=== PATIENT | female | born 1965 | race Caucasian/White ===

== ENCOUNTER 2023-04-08 23:45 | Observation (INO) | payer OTHER, SELFPAY ==
[2023-04-08 23:49] VITALS: BP 135/84; PULSE 100; RESP 16; TEMP 36.7; O2SAT 97; BMI 23.4
[2023-04-09] VITALS (8 sets, daily range): BP systolic 136–156; BP diastolic 84–88; PULSE 88–117; RESP 16–20; TEMP 36.6–37.1; O2SAT 97–98; BMI 25.4
--- NOTE | 2023-04-09 00:21 | ED.NAVMDI1 ---
HPI - Nausea/Vomiting/Diarrhea General Chief complaint: Nausea/Vomiting/Diarrhea Stated complaint: VOMITING Time Seen by Provider: 04/09/23 00:21 Source: patient Mode of arrival: walk-in Limitations: no limitations History of Present Illness HPI Narrative: patient ill past couple of days with recurrent vomiting and diarrhea. more vomiting. states she is not able to keep anything down. No abdominal pain or fever. Not around anyone who has been ill. No hematememis or blood per rectum. Feels weak Related Data Home Medications Medication Instructions Recorded Confirmed amitriptyline 50 mg tablet mg 04/08/23 atorvastatin 10 mg tablet mg 04/08/23 baclofen 10 mg tablet mg 04/08/23 carvedilol 6.25 mg tablet mg 04/08/23 gabapentin 800 mg tablet mg 04/08/23 lisinopril 10 tab 04/08/23 mg-hydrochlorothiazide 12.5 mg tablet metformin 1,000 mg tablet mg 04/08/23 pantoprazole 20 mg tablet,delayed mg PO 04/08/23 release Allergies Allergy/AdvReac Type Severity Reaction Status Date / Time acetaminophen [From Percocet] Allergy Verified 04/08/23 23:54 ondansetron [From Zofran] Allergy Verified 04/08/23 23:54 oxycodone [From Percocet] Allergy Verified 04/08/23 23:54 promethazine [From Phenergan] Allergy Verified 04/08/23 23:56 propoxyphene Allergy Verified 04/08/23 23:56 [From Darvocet-N] tylenol 3 Allergy Uncoded 04/08/23 23:54 Review of Systems ROS Status of ROS 10 or more systems reviewed and unremarkable except as noted in history and below [facility] Social History Smoking status: Never smoker Exam Constitutional Vital Signs, click to edit/add: Last Vital Signs Temp 98.0 F 04/08/23 23:49 Pulse 100 H 04/08/23 23:49 Resp 16 04/08/23 23:49 BP 135/84 04/08/23 23:49 Pulse Ox 97 04/08/23 23:49 Common normals: no apparent distress, average body habitus, oriented x3, no limitations, healthy appearing, alert and well nourished Eye Common normals: EOMs intact bilaterally Respiratory Common normals: normal respiratory effort, no retractions, no use of accessory muscles and clear to auscultation bilaterally Cardio Common normals: regular rate, regular rhythm, S1 normal heart sound and S2 normal heart sound GI Common normals: Normal to inspection, nondistended, normoactive bowel sounds present, soft to palpation and non-tender Extremity Common normals: normal to inspection and full ROM Neuro Common normals: oriented x3, CN's II-XII intact bilaterally, moves all extremities, no focal motor deficits and no sensory deficits noted Psych Appearance: grossly normal Course Vital Signs Vital signs: Vital Signs Temperature 98.0 F 04/08/23 23:49 Pulse Rate 100 H 04/08/23 23:49 Respiratory Rate 16 04/08/23 23:49 Blood Pressure 135/84 04/08/23 23:49 Pulse Oximetry 97 04/08/23 23:49 Temperature 98.0 F 04/08/23 23:49 Pulse Rate 100 H 04/08/23 23:49 Respiratory Rate 16 04/08/23 23:49 Blood Pressure 135/84 04/08/23 23:49 Pulse Oximetry 97 04/08/23 23:49 MDM - Nausea/Vomiting/Diarrhea MDM Narrative Medical decision making narrative: patient presents with recurrent vomiting and diarrhea for a couple of days. Not able to keep anything down. No abdominal pain. Abdominal exam neg. labs demonstrate hyponatremia. Discussed with the hospitalist and patient accepted for admission Lab Data Labs: Lab Results 04/09/23 Range/Units 00:01 WBC 7.6 (4.0-11.0) 10^3/uL RBC 3.92 L (4.20-5.40) 10^6/uL Hgb 10.6 L (12.0-16.0) g/dL Hct 31.6 L (36.0-48.0) % MCV 80.6 L (81.0-99.0) fL MCH 27.0 (26.7-34.0) pg MCHC 33.5 (29.9-35.2) g/dL RDW 13.7 (11.0-15.0) % Plt Count 335 (150-450) 10^3/uL MPV 9.1 L (9.5-13.5) fL Neut % (Auto) 71.0 (43.0-75.0) % Lymph % (Auto) 18.8 L (20.5-60.0) % [place] % (Auto) 8.1 (1.7-12.0) % Eos % (Auto) 1.5 (0.9-7.0) % Baso % (Auto) 0.5 (0.2-2.0) % Neut # (Auto) 5.4 (1.4-6.5) 10^3/uL Lymph # (Auto) 1.4 (1.2-3.8) 10^3/uL [place] # (Auto) 0.6 (0.3-0.8) 10^3/uL Eos # (Auto) 0.1 (0.0-0.7) 10^3/uL Baso # (Auto) 0.0 (0.0-0.1) 10^3/uL Abs Immat Gran (auto) 0.01 (0.00-0.03) 10^3/uL Imm/Tot Granulo (auto) 0.1 (0.0-0.5) % Sodium 123 L* (136-145) mmol/L Potassium 4.1 (3.5-5.1) mmol/L Chloride 88 L (98-107) mmol/L Carbon Dioxide 25.2 (21.0-32.0) mmol/L Anion Gap 13.9 BUN 11.0 (7.0-18.0) mg/dL Creatinine 1.04 H (0.55-1.02) mg/dL Est GFR ( Amer) >60 (>=60) Est GFR (Non-Af Amer) 55 L (>=60) BUN/Creatinine Ratio 10.6 Glucose 138 H (74-106) mg/dL Lactate 1.1 (0.4-2.0) mmol/L Calcium 8.9 (8.5-10.1) mg/dL Total Bilirubin 0.5 (0.2-1.0) mg/dL AST 14 L (15-37) U/L ALT 20 (14-59) U/L Alkaline Phosphatase 119 H (46-116) U/L Total Protein 7.6 (6.4-8.2) g/dL Albumin 3.6 (3.4-5.0) g/dL Globulin 4.0 g/dL Albumin/Globulin Ratio 0.9 Lipase 17.0 (16.0-77.0) U/L Discharge Plan Discharge Chief Complaint: Nausea/Vomiting/Diarrhea Clinical Impression: Gastroenteritis, Acute hyponatremia Patient Disposition: Admitted as Observation Prescriptions / Home Meds: No Action carvedilol 6.25 mg tablet atorvastatin 10 mg tablet amitriptyline 50 mg tablet pantoprazole 20 mg tablet,delayed release (DR/EC) PO gabapentin 800 mg tablet baclofen 10 mg tablet metformin 1,000 mg tablet lisinopril-hydrochlorothiazide 10-12.5 mg tablet Referrals: BREANA PERSON [Primary Care Provider] - 1 week
[2023-04-09] MEDS: 0.9 % SODIUM CHLORIDE 1,000 ML 999 ML IV ×2 (00:51)
[2023-04-09] MEDS: METOCLOPRAMIDE HCL 10 MG/2 ML VIAL IVP ×2 (00:52→05:48)
[2023-04-09 01:23] LABS: Basophils Percent Auto 0.5 % (0.2-2.0); Eosinophils Absolute Auto 0.1 10^3/uL (0.0-0.7); Eosinophils Percent Auto 1.5 % (0.9-7.0); Hematocrit 31.6 % (36.0-48.0); Hemoglobin 10.6 g/dL (12.0-16.0); Immature Granulocytes Abs Auto 0.01 10^3/uL (0.00-0.03); Immature Granulocytes Pct Auto 0.1 % (0.0-0.5); Lymphocytes Absolute Auto 1.4 10^3/uL (1.2-3.8); Lymphocytes Percent Auto 18.8 % (20.5-60.0); Mean Corpuscular HGB Conc 33.5 g/dL (29.9-35.2); Mean Corpuscular Volume 80.6 fL (81.0-99.0); Mean Platelet Volume 9.1 fL (9.5-13.5); Monocytes Absolute Auto 0.6 10^3/uL (0.3-0.8); Monocytes Percent Auto 8.1 % (1.7-12.0); Neutrophils Absolute Auto 5.4 10^3/uL (1.4-6.5); Platelet Count 335 10^3/uL (150-450); Red Blood Count 3.92 10^6/uL (4.20-5.40); Red Cell Distribution Width 13.7 % (11.0-15.0); White Blood Count 7.6 10^3/uL (4.0-11.0)
[2023-04-09 01:39] LABS: Lactate/Lactic Acid 1.1 mmol/L (0.4-2.0)
[2023-04-09 01:45] LABS: Alanine Aminotransferase 20 U/L (14-59); Albumin Globulin Ratio 0.9; Albumin Level 3.6 g/dL (3.4-5.0); Alkaline Phosphatase 119 U/L (46-116); Anion Gap 13.9; Aspartate Amino Transferase 14 U/L (15-37); BUN Creatinine Ratio 10.6; Bilirubin Total 0.5 mg/dL (0.2-1.0); Calcium 8.9 mg/dL (8.5-10.1); Carbon Dioxide 25.2 mmol/L (21.0-32.0); Chloride 88 mmol/L (98-107); Estimated GFR (African America >60 (>=60); Estimated GFR (Non-African Ame 55 (>=60); Glucose 138 mg/dL (74-106); Potassium 4.1 mmol/L (3.5-5.1); Total Protein 7.6 g/dL (6.4-8.2)
[2023-04-09 01:52] LABS: Sodium 123 mmol/L (136-145)
[2023-04-09 02:24] LABS: Bilirubin Urine NEGATIVE (NEGATIVE); Blood Urine NEGATIVE (NEGATIVE); Clarity Urine CLEAR (CLEAR); Color Urine LT. YELLOW (YELLOW); Glucose Urine UA NEGATIVE (NEGATIVE); Ketones Urine NEGATIVE (NEGATIVE); Leukocyte Esterase Urine TRACE (NEGATIVE); Nitrite Urine NEGATIVE (NEGATIVE); Protein Urine NEGATIVE (NEG/TRACE); Urobilinogen Urine 0.2 EU/dL (0.2-1.0); pH Urine 6.5 (5.0-9.0)
[2023-04-09 02:27] LABS: Urine Microscopic Indicated YES
[2023-04-09 02:33] LABS: Bacteria Urine NONE SEEN #/HPF (NONE SEEN); Cast Seen? NONE SEEN #/LPF (NONE SEEN); Crystals Seen? None Seen #/HPF (None Seen); Mucus Urine NONE SEEN (NONE SEEN); RBC Urine 0-2 #/HPF (0-2); Squamous Epithelial Cell Urine NONE SEEN #/LPF (NONE/RARE); WBC Urine 0-2 #/HPF (NONE SEEN)
[2023-04-09 02:43] LABS: Creatinine Urine Random 26.66 mg/dL (20.00-300.00); Sodium Urine Random 62 mmol/L (30-90)
[2023-04-09 05:16] LABS: Basophils Percent Auto 0.3 % (0.2-2.0); Eosinophils Absolute Auto 0.1 10^3/uL (0.0-0.7); Eosinophils Percent Auto 1.5 % (0.9-7.0); Hematocrit 30.5 % (36.0-48.0); Hemoglobin 10.1 g/dL (12.0-16.0); Immature Granulocytes Abs Auto 0.01 10^3/uL (0.00-0.03); Immature Granulocytes Pct Auto 0.2 % (0.0-0.5); Lymphocytes Absolute Auto 1.5 10^3/uL (1.2-3.8); Lymphocytes Percent Auto 25.1 % (20.5-60.0); Mean Corpuscular HGB Conc 33.1 g/dL (29.9-35.2); Mean Corpuscular Hemoglobin 27.1 pg (26.7-34.0); Mean Corpuscular Volume 81.8 fL (81.0-99.0); Mean Platelet Volume 8.9 fL (9.5-13.5); Monocytes Absolute Auto 0.7 10^3/uL (0.3-0.8); Monocytes Percent Auto 11.3 % (1.7-12.0); Neutrophils Absolute Auto 3.6 10^3/uL (1.4-6.5); Neutrophils Percent Auto 61.6 % (43.0-75.0); Platelet Count 273 10^3/uL (150-450); Red Blood Count 3.73 10^6/uL (4.20-5.40); Red Cell Distribution Width 13.6 % (11.0-15.0); White Blood Count 5.9 10^3/uL (4.0-11.0)
[2023-04-09 05:39] LABS: Anion Gap 14.7; BUN Creatinine Ratio 9.6; Calcium 8.6 mg/dL (8.5-10.1); Carbon Dioxide 24.5 mmol/L (21.0-32.0); Chloride 96 mmol/L (98-107); Estimated GFR (African America >60 (>=60); Estimated GFR (Non-African Ame >60 (>=60); Glucose 114 mg/dL (74-106); Potassium 4.2 mmol/L (3.5-5.1); Sodium 131 mmol/L (136-145)
[2023-04-09] MEDS: 0.9 % SODIUM CHLORIDE 1,000 ML 125 ML IV (07:45)
[2023-04-09] MEDS: CARVEDILOL 6.25 MG TABLET PO (10:22)
[2023-04-09] MEDS: MULTIVITAMIN TABLET 1 TAB PO (10:22)
[2023-04-09] MEDS: ASPIRIN 81 MG TABLET.DR PO (10:22)
[2023-04-09] MEDS: OMEPRAZOLE 20 MG CAPSULE.DR PO (10:22)
[2023-04-09] MEDS: ATORVASTATIN CALCIUM 10 MG TABLET PO (10:22)
[2023-04-09] MEDS: BACLOFEN 10 MG TABLET PO (10:22)
--- NOTE | 2023-04-09 10:54 | CM.NOTE ---
Rounds made with Dr. Valdez, will increase pt's diet. If tolerates may discharge to home.
[2023-04-09 11:10] LABS: Glucometer 164 mg/dL (74-106)
--- NOTE | 2023-04-09 11:11 | P.HP_ITS ---
<Statement entered by Shaikh Courtney MD - 04/09/23 14:44> This documentation has been reviewed and approved. Seen and examined. Doing well now. Tolerated PO diet, no nausea/vomiting or diarrhea since last night. Exam: Laying in bed, comfortable CTA b/l, normal RR Normal HR, no murmurs NT, ND, BS+VE Assessment and Plan Viral gastroenteritis Hyponatremia. GERD Symptoms improved/resolved. Stable for discharge. H&P: HPI History of Present Illness Chief complaint: VOMITING Narrative: 04/09/23 0199 This is a 58-year-old female patient with a past medical history as outlined below including DM type II, HTN, hyperlipidemia, and GERD; who presented to the ED complaining of a 2-day history of nausea, vomiting, and diarrhea. She denies any abdominal pain or fever or recent sick contacts. She denies hematemesis or hematochezia. She endorses significant weakness. Workup in the ED revealed hyponatremia (123), with remaining lab work unremarkable. She was admitted early this morning in observation to the hospitalist service for IV fluid administration and antiemetic administration. At the time of my exam this morning the pt is sitting up in bed eating jello. She reports feeling significantly improved after receiving IVFs - even while still in the ED. Her sodium is improved to 131 on repeat labs. She denies any further N/V/D since admission. We will advance her diet and if she tolerates this well, she will be discharged home later today. DISCHARGE: The pt tolerated her full breakfast well without any recurrence of N/V. She is being discharged home in stable condition. She should follow up with her PCP within one week. Review of Systems ROS Status of ROS 10 or more systems reviewed and unremark able except as noted in history and below [facility] Medical History (Updated 04/09/23 @ 14:36 by Ele Arias NP) GERD (gastroesophageal reflux disease) ?K21.9 - Gastro-esophageal reflux disease without esophagitis (ICD-10) Breast cancer ?C50.919 - Malignant neoplasm of unspecified site of unspecified female breast (ICD-10) High cholesterol ?E78.00 - Pure hypercholesterolemia, unspecified (ICD-10) Diabetes ?E11.9 - Type 2 diabetes mellitus without complications (ICD-10) Surgical History (Updated 04/09/23 @ 03:48 by Cassidy Robles) Hx of cholecystectomy ?Z90.49 - Acquired absence of other specified parts of digestive tract (ICD- 10) H/O: ?Z98.891 - History of uterine scar from previous surgery (ICD-10) H/O right mastectomy ?Z90.11 - Acquired absence of right breast and nipple (ICD-10) Social History Smoking status: Never smoker Highest level of school completed/degree received: high school graduate Meds Home Medications and Allergies Home Medications Medication Instructions Recorded Confirmed Type amitriptyline 50 mg tablet 50 mg PO DAILY 04/08/23 04/09/23 History atorvastatin 10 mg tablet 10 mg PO DAILY 04/08/23 04/09/23 History baclofen 10 mg tablet 10 mg PO BID 04/08/23 04/09/23 History carvedilol 6.25 mg tablet 6.25 mg PO BID 04/08/23 04/09/23 History gabapentin 800 mg tablet 800 mg PO TID 04/08/23 04/09/23 History metformin 1,000 mg tablet 1,000 mg PO BID 04/08/23 04/09/23 History pantoprazole 20 mg tablet,delayed 20 mg PO DAILY 04/08/23 04/09/23 History release aspirin 81 mg tablet,delayed 81 mg PO DAILY 04/09/23 04/09/23 History release (Adult Aspirin Regimen) multivitamin (Daily Multi-Vitamin 1 tab PO DAILY 04/09/23 04/09/23 History tablet) Allergies Allergy/AdvReac Type Severity Reaction Status Date / Time codeine Allergy Intermediate vomiting Verified 04/09/23 03:24 ondansetron [From Zofran] Allergy Verified 04/09/23 03:24 oxycodone [From Percocet] Allergy Verified 04/09/23 03:24 promethazine [From Phenergan] Allergy Verified 04/09/23 03:24 propoxyphene Allergy Verified 04/09/23 03:24 [From Darvocet-N] Exam Constitutional Vital Signs, click to edit/add: Last Vital Signs Temp 98 F 04/09/23 05:36 Pulse 115 H 04/09/23 10:00 Resp 18 04/09/23 08:00 BP 137/84 04/09/23 05:36 Pulse Ox 97 04/09/23 05:36 O2 Del Method Room Air 04/09/23 05:36 Common normals: no apparent distress, oriented x3, alert and well nourished General appearance: cooperative Orientation/consciousness: Yes awake HENMT Common normals: normocephalic, head/scalp atraumatic, hearing grossly normal bilaterally, external nose normal and moist oral mucous membranes Eye Common normals: PERRL, EOMs intact bilaterally, conjunctivae normal and no scleral icterus Alignment: alignment normal Eyelid: eyelids normal Neck & C-Spine Common normals: full ROM, supple and no JVD Chest Common normals: inspection of chest normal Chest: symmetrical chest wall rise Respiratory Common normals: normal respiratory effort, no retractions, no use of accessory muscles and clear to auscultation bilaterally Effort & inspection: able to speak in complete sentences Cardio Common normals: no JVD, regular rhythm, S1 normal heart sound, S2 normal heart sound, no gallops, no clicks, no murmurs, no rub and peripheral pulses 2+ throughout Rate: tachycardic (Mild, regular, asymptomatic) GI Common normals: Normal to inspection, nondistended, normoactive bowel sounds present, soft to palpation, non-tender, no hepatosplenomegaly, no masses and no bruits Bladder/kidney exam: bladder normal to palpation Back & Pelvis Common normals: thoracic and lumbar spine normal to inspection Extremity Common normals: normal capillary refill and no pedal edema General: normal exam except as noted; no clubbing and no cyanosis Neuro [place] Coma Scale: GCS not evaluated Common normals: CN's II-XII intact bilaterally, moves all extremities, no focal motor deficits and no sensory deficits noted Speech: speech normal Motor exam: strength 5/5 throughout Psych Common normals: mental status grossly normal, thought process normal, affect normal and activity/motor behavior normal Results Labs Labs: Short CBC 04/09/23 04/09/23 Range/Units 00:01 04:13 WBC 7.6 5.9 (4.0-11.0) 10^3/uL Hgb 10.6 L 10.1 L (12.0-16.0) g/dL Hct 31.6 L 30.5 L (36.0-48.0) % Plt Count 335 273 (150-450) 10^3/uL BMP 04/09/23 04/09/23 00:01 04:13 Sodium 123 L* 131 L Potassium 4.1 4.2 Chloride 88 L 96 L Carbon Dioxide 25.2 24.5 BUN 11.0 9.0 Creatinine 1.04 H 0.94 Glucose 138 H 114 H Calcium 8.9 8.6 Liver Function 04/09/23 Range/Units 00:01 Total Bilirubin 0.5 (0.2-1.0) mg/dL AST 14 L (15-37) U/L ALT 20 (14-59) U/L Alkaline Phosphatase 119 H (46-116) U/L Albumin 3.6 (3.4-5.0) g/dL Urine 04/09/23 Range/Units 02:10 Urine Color Lt. yellow (YELLOW) Urine Clarity Clear (CLEAR) Urine pH 6.5 (5.0-9.0) Ur Specific [place] 1.010 (1.005-1.025) Urine Protein Negative (NEG/TRACE) mg/dL Urine Glucose (UA) Negative (NEGATIVE) mg/dL Pulse Oximetry Attestation: I have reviewed the pertinent pulse oximetry results. Assessment and Plan Assessment and Plan (1) Acute hyponatremia: Assessment and Plan: ACUTE * Adm observation early this morning * Sodium 123 in ED, resolving w/ 131 on AM labs today after IVF administration * No neurologic changes and the pt's symptom of weakness has resolved (2) Gastroenteritis: Assessment and Plan: ACUTE * Resolved * No further N/V/D today * Tolerating regular PO diet well (3) Diabetes: Assessment and Plan: CHRONIC * Continue home metformin * Med CC diet * SSI for glucose correction (4) High cholesterol: Assessment and Plan: CHRONIC * Continue home statin (5) GERD (gastroesophageal reflux disease): Assessment and Plan: CHRONIC * Continue home PPI Plan D/C Home if tolerating diet well.
--- NOTE | 2023-04-10 10:20 | CM.DCFOLLOWU ---
Person spoke with: patient How are you feeling? tired, came home from work due to a headache How is your pain? headache Did you understand your discharge instructions? yes Do you have any questions about your discharge instructions? no Were you given any prescriptions at discharge? no Were you able to get your prescriptions filled?n/a Do you understand how to take your medications as ordered? yes Do you have any questions about your follow up appointment and do you plan to keep your follow up appointment? no questions, reviewed f/u apts with patient Is there anything else that you would like to discuss? no Questions/Comments/Concerns/Other: n/a
== END 2023-04-09 11:51 | disposition home or self-care (01) ==
LOC: ER 04-09 02:02 → MS 04-09 02:47
PROVIDERS: Nurse Practitioner Acute Care; Admitting Provider Internal Medicine; Emergency Provider Internal Medicine; PCP Family Medicine; Visit Provider Internal Medicine
DX: E87.1 Hypo-osmolality and hyponatremia (principal); K52.9 Noninfective gastroenteritis and colitis, unspecified; E11.9 Type 2 diabetes mellitus without complications; E78.00 Pure hypercholesterolemia, unspecified; K21.9 Gastro-esophageal reflux disease without esophagitis; I10 Essential (primary) hypertension; Z85.3 Personal history of malignant neoplasm of breast; Z90.11 Acquired absence of right breast and nipple; Z79.84 Long term (current) use of oral hypoglycemic drugs; Z79.899 Other long term (current) drug therapy; Z79.82 Long term (current) use of aspirin; Z98.891 History of uterine scar from previous surgery; Z90.49 Acquired absence of other specified parts of digestive tract
CPT/HCPCS: 36415; 80048; 80053; 81001; 82570; 82948; 83605; 83690; 83935; 84300; 85025; 87045; 87493; 87507; 96361; 96374; 96376; 99285; G0378; J2765